=== PATIENT | female | born 1960 | race African-American/Black ===

== ENCOUNTER 2023-12-27 14:04 | Emergency (ER) | payer MEDICAID ==
[~2023-12-27] VITALS: Ht 167.6 cm; Wt 68.0 kg
[~2023-12-27 14:04] MED LIST: ASPI-1160
[2023-12-27 14:09] VITALS: BP 125/85; TEMP 98.7; O2SAT 98
[2023-12-27 14:34] VITALS: PULSE 88; RESP 18
[2023-12-27] MEDS: IBUPROFEN 600MG TABLET PO ONE (15:15)
== END 2023-12-27 16:15 | disposition home or self-care (01) ==
LOC: ER 14:04
DX: M25.522 Pain in left elbow (principal); M25.562 Pain in left knee; M25.572 Pain in left ankle and joints of left foot; Y04.0XXA Assault by unarmed brawl or fight, initial encounter; Y93.89 Activity, other specified; Y92.89 Other specified places as the place of occurrence of the external cause; Y99.8 Other external cause status
CPT/HCPCS: 73080; 73562; 73610; 99284; Z7610